=== PATIENT | male | born 1965 | race American Indian/Alaskan Native ===

== ENCOUNTER 2018-10-23 18:46 | Emergency (ER) | payer MEDICARE ==
--- NOTE | 2018-10-23 21:34 | Emergency Department Report ---
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 Denies SI/HI. Needs somewhere to stay.
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
[2018-10-23 22:13] LABS: Basophils % (Auto) 0.4 % (0.0-1.8); Eosinophils # (Auto) 0.2 K/mm3 (0.0-0.4); Eosinophils % (Auto) 2.9 % (0.0-4.3); Hematocrit 41.4 % (35.5-45.6); Hemoglobin 13.9 gm/dl (11.8-15.2); Lymphocytes # (Auto) 2.2 K/mm3 (1.2-5.4); Lymphocytes % (Auto) 31.3 % (13.4-35.0); Mean Corpuscular HGB Conc 34 % (32-34); Mean Corpuscular Volume 99 fl (84-94); Monocytes # (Auto) 0.7 K/mm3 (0.0-0.8); Monocytes % (Auto) 10.3 % (0.0-7.3); Platelet Count 209 K/mm3 (140-440); Red Blood Count 4.17 M/mm3 (3.65-5.03); Red Cell Distribution Width 12.7 % (13.2-15.2)
[2018-10-23 22:32] LABS: BUN/Creatinine Ratio 17; Blood Urea Nitrogen 15 mg/dL (9-20); Hemolysis Index 63
[2018-10-23 23:09] LABS: Bilirubin,Urine NEG (Negative); Blood,Urine NEG (Negative); Color,Urine Yellow (Yellow); Protein,Urine <15 mg/dL mg/dL (Negative); WBC,Urine < 1.0 /HPF (0.0-6.0)
[2018-10-23 23:17] LABS: Amphetamine Screen,Urine PRESUMPTIVE NEGATIVE; Benzodiazepines Screen,Urine PRESUMPTIVE NEGATIVE; Cannabinoid Screen,Urine PRESUMPTIVE NEGATIVE; Cocaine Screen,Urine PRESUMPTIVE NEGATIVE; Methadone Screen,Urine PRESUMPTIVE NEGATIVE; Opiate Screen,Urine PRESUMPTIVE NEGATIVE
[2018-10-24 08:09] VITALS: BP 104/65
== END 2018-10-24 14:40 ==
LOC: ED 18:46 → EEVIPCON 18:46 → ED 10-24 14:40
DX: R46.89 Other symptoms and signs involving appearance and behavior (principal); F17.200 Nicotine dependence, unspecified, uncomplicated
CPT/HCPCS: 36415; 80048; 80307; 81001; 82962; 85025; 99284; G0480; 80320

== ENCOUNTER 2018-10-24 20:21 | Emergency (ER) | payer MEDICARE ==
[2018-10-24] MEDS ORDERED: KEPPRA PO ONE (21:12)
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
[2018-10-25 02:49] VITALS: BP 97/57
== END 2018-10-25 11:09 | disposition home or self-care (01) ==
LOC: ED 20:21
DX: R46.89 Other symptoms and signs involving appearance and behavior (principal); Z76.0 Encounter for issue of repeat prescription; I10 Essential (primary) hypertension; E11.9 Type 2 diabetes mellitus without complications; F17.200 Nicotine dependence, unspecified, uncomplicated

== ENCOUNTER 2019-04-09 13:30 | Emergency (ER) | payer MEDICARE ==
[2019-04-09] MEDS ORDERED: CEREBYX 1,000 MG.PE in NACL 0.9% 100 ML IV ONE (13:40)
[2019-04-09] MEDS ORDERED: NACL 0.9% 1000 ML 1,000 ML IV ONE (13:40)
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
[2019-04-09 14:27] LABS: Basophils % (Auto) 0.3 % (0.0-1.8); Eosinophils # (Auto) 0.1 K/mm3 (0.0-0.4); Eosinophils % (Auto) 1.4 % (0.0-4.3); Hematocrit 42.6 % (35.5-45.6); Hemoglobin 13.9 gm/dl (11.8-15.2); Lymphocytes # (Auto) 1.6 K/mm3 (1.2-5.4); Lymphocytes % (Auto) 35.3 % (13.4-35.0); Mean Corpuscular HGB Conc 33 % (32-34); Mean Corpuscular Volume 99 fl (84-94); Monocytes # (Auto) 0.5 K/mm3 (0.0-0.8); Monocytes % (Auto) 9.9 % (0.0-7.3); Platelet Count 193 K/mm3 (140-440); Red Blood Count 4.29 M/mm3 (3.65-5.03); Red Cell Distribution Width 13.6 % (13.2-15.2)
[2019-04-09 14:38] LABS: Albumin 4.1 g/dL (3.9-5); BUN/Creatinine Ratio 10; Blood Urea Nitrogen 9 mg/dL (9-20); Calcium 9.2 mg/dL (8.4-10.2); Hemolysis Index 91
--- NOTE | 2019-04-09 14:54 | Cat Scan Report ---
CT CERVICAL SPINE WITHOUT CONTRAST INDICATION: Seizure. TECHNIQUE: Axial imaging performed through the cervical spine without the use of contrast. Sagittal and coronal reconstructed images were also reviewed. All CT scans at this location are performed us ing CT dose reduction for ALARA by means of automated exposure control. COMPARISON: None FINDINGS: Comment: Technically this is an incomplete CT cervical spine. T1 is not included in this exam. Alignment: Spinal alignment is normal. Bones: There is no acute osseous abnormality. Moderate multilevel degenerative disc disease is iden tified which is most pronounced at C3-4. Mild diffuse facet arthropathy. Soft tissues: No acute or significant incidental soft tissue abnormality. IMPRESSION: No evidence for fracture or malalignment from C1-C7. T1 is not included. See above. Cervical spondylosis. Signer Name: Rickie Jones Jr, MD Signed: 04/09/2019 2:50 PM Workstation Name: [id number]
--- NOTE | 2019-04-09 15:02 | Cat Scan Report ---
CT HEAD WITHOUT CONTRAST INDICATION / CLINICAL INFORMATION: MAIN: Seizure TECH NOTE: PT FELL AND HIT HEAD . TECHNIQUE: All CT scans at this location are performed using CT dose reduction for ALARA by means of automated e xposure control. COMPARISON: None. Head CT 08/25/2009 could not be retrieved for comparison at the time of this interpretation.. FINDINGS: HEMORRHAGE: No evidence of intracranial hemorrhage or extra-axial fluid collection. EXTRA-AXIAL SPACES: Cortical sulci, sylvian fissures and basilar cisterns have an unremarkable appear ance. VENTRICULAR SYSTEM: The ventricular system is of normal size and configuration. CEREBRAL PARENCHYMA: No areas of abnormal brain parenchymal attenuation are identified. There is no i ndication of recent infarction. MIDLINE SHIFT OR HERNIATION: There is no mass effect. CEREBELLUM / BRAINSTEM: Brainstem and cerebellum have an unremarkable appearance. INTRACRANIAL VESSELS:No abnormalities are identified on this noncontrast head CT. ORBITS: Deformity of the left lamina papyracea suggests remote medial wall blowout fracture. The orbi ts have an otherwise unremarkable appearance.. SOFT TISSUES of HEAD: No significant abnormality. CALVARIUM: Evaluation of bone windows reveals no abnormalities. PARANASAL SINUSES / MASTOID AIR CELLS: Paranasal sinuses are free from inflammatory mucosal disease. Mastoid air cells are normally pneumatized. IMPRESSION: 1. No acute intracranial abnormality. 2. Suspect remote left orbital medial wall blowout fracture. Signer Name: Juan Mendoza MD Signed: 04/09/2019 2:57 PM Workstation Name: [id number]
[2019-04-09 15:11] LABS: Alanine Aminotransferase 22 units/L (7-56)
[2019-04-09 15:41] LABS: Bilirubin,Urine NEG (Negative); Blood,Urine NEG (Negative); Color,Urine Yellow (Yellow); Mucus,Urine FEW /HPF; Urobilinogen,Urine < 2.0 mg/dL (<2.0)
[2019-04-09 15:50] LABS: Amphetamine Screen,Urine PRESUMPTIVE NEGATIVE; Benzodiazepines Screen,Urine PRESUMPTIVE NEGATIVE; Cannabinoid Screen,Urine PRESUMPTIVE NEGATIVE; Cocaine Screen,Urine PRESUMPTIVE NEGATIVE; Methadone Screen,Urine PRESUMPTIVE NEGATIVE; Opiate Screen,Urine PRESUMPTIVE NEGATIVE
[2019-04-09 17:20] VITALS: BP 105/62
== END 2019-04-09 18:52 | disposition home or self-care (01) ==
LOC: ED 13:30
DX: S00.81XA Abrasion of other part of head, initial encounter (principal); G40.909 Epilepsy, unspecified, not intractable, without status epilepticus; E11.649 Type 2 diabetes mellitus with hypoglycemia without coma; I10 Essential (primary) hypertension; F17.200 Nicotine dependence, unspecified, uncomplicated; Z79.84 Long term (current) use of oral hypoglycemic drugs; Z79.899 Other long term (current) drug therapy; Z88.4 Allergy status to anesthetic agent; Z88.8 Allergy status to other drugs, medicaments and biological substances; Z91.018 Allergy to other foods; W18.30XA Fall on same level, unspecified, initial encounter; Y93.89 Activity, other specified; Y92.210 Daycare center as the place of occurrence of the external cause; Y99.8 Other external cause status
CPT/HCPCS: 36415; 70450; 72125; 80053; 80156; 80164; 80185; 80307; 81001; 82962; 85025; 93005; 93010; 96365; 96366; 96375; 99285; J2560; J7030; Q2009; 80320; G0480